=== PATIENT | female | born 1985 | race Caucasian/White ===

== ENCOUNTER 2022-02-15 21:45 | Emergency (ER) | payer SELFPAY ==
[~2022-02-15] VITALS: Ht 170.2 cm; Wt 69.0 kg
[2022-02-16 00:44] VITALS: BP 116/74
== END 2022-02-16 02:13 | disposition home or self-care (01) ==
LOC: ER 21:45
DX: F10.129 Alcohol abuse with intoxication, unspecified (principal); R53.1 Weakness; Y90.0 Blood alcohol level of less than 20 mg/100 ml; R42 Dizziness and giddiness
CPT/HCPCS: 99283